=== PATIENT | female | born 2000 ===

== ENCOUNTER 2024-12-01 13:05 | Outpatient (CLI) | payer OTHER | END 2024-12-01 13:08 | disposition home or self-care (01) | LOC: PRENATAL 13:05 | PROVIDERS: ATTEND Obstetrics & Gynecology Maternal & Fetal Medicine | DX: O35.00X0 Maternal care for (suspected) central nervous system malformation or damage in fetus, unspecified, not applicable or unspecified (principal); O44.00 Complete placenta previa NOS or without hemorrhage, unspecified trimester; Z3A.25 25 weeks gestation of pregnancy ==

== ENCOUNTER 2025-03-09 15:15 | Inpatient (IN) | payer OTHER ==
[~2025-03-09] VITALS: Ht 152.4 cm; Wt 3.6 kg
[2025-03-21] MEDS ORDERED: PRENATA CHEWAB1 EACH PO (10:09)
[2025-03-21 11:09] LABS: HEMOGLOBIN 11.4 g/dL (11.2-15.7); RED BLOOD COUNT 4.39 M/uL (3.93-5.22)
[2025-03-21 11:10] LABS: BASO % 0.3 % (0.1-1.2); EOS # 0.31 (0.04-0.54); EOS % 2.7 % (0.7-7.0); LYMPH # 2.27 (1.18-3.74); LYMPH % 19.7 % (19.3-53.1); MONO # 1.12 (0.24-0.82); MONO % 9.7 % (4.7-12.5); NEUT # 7.71 (1.56-6.13); NEUT % 66.7 % (34.0-71.1); PLATELET COUNT 146 K/uL (163-369); RED CELL DISTRIBUTION WIDTH 15.2 % (11.6-14.4)
[2025-03-21 11:13] LABS: INR 0.99; PARTIAL THROMBOPLASTIN TIME 29.7 SECONDS (22.0-34.0); PROTHROMBIN TIME 10.8 SECONDS (9.0-11.5)
[2025-03-21 11:38] LABS: PH,URINE 6.5 (5.0-8.0); URINE APPEARANCE Clear; URINE BILIRRUBIN Negative (NEGATIVE); URINE BLOOD Large; URINE COLOR Yellow; URINE GLUCOSE Negative (NEGATIVE); URINE KETONE Negative (NEGATIVE); URINE LEUKOCYTE Small; URINE NITRATE Negative; URINE PROTEIN Negative (NEGATIVE); URINE UROBILINOGEN 0.2 E.U./dl
[2025-03-21 11:43] LABS: URINE BACTERIA 1370.7 uL (0.0-1933); URINE EPITHELIAL CELLS 63.3 uL (0.0-38.8); URINE RBC 2.7 uL (0.0-20.8); URINE WBC 49.6 uL (0.0-23.2)
[2025-03-21 11:59] LABS: ALBUMIN 2.7 gm/dL (3.4-5.0); BILIRUBIN TOTAL 0.25 mg/dL (0.3-1.2); CALCIUM 9.2 mg/dL (8.5-10.1); CREATININE SERUM 0.51 mg/dL (0.55-1.02); GFR 146.93; GLOBULINA 3.8 G/DL (2.4-3.5); POTASSIUM 4.3 mEq/L (3.5-5.1); TOTAL PROTEIN 6.5 gm/dL (6.4-8.2)
[2025-03-21 12:02] LABS: URINE CAST 0.14 uL (0.0-1.40)
[2025-03-23 15:39] VITALS: BP 125/77
[2025-03-23] MEDS ORDERED: RINGERS SOLUTION,LACTATED 1,000 ML IV SCH (16:30)
[2025-03-23] MEDS ORDERED: CEFAZOLIN SODIUM 1,000 MG VIAL IV SCH (17:00)
[2025-03-23 17:18] LABS: BASO % 0.2 % (0.1-1.2); EOS # 0.19 (0.04-0.54); EOS % 1.5 % (0.7-7.0); HEMATOCRIT 35.8 % (34.1-44.9); HEMOGLOBIN 11.5 g/dL (11.2-15.7); LYMPH # 1.56 (1.18-3.74); LYMPH % 12.5 % (19.3-53.1); MEAN CORPUSCULAR HEMOGLOBIN 25.5 pg (25.6-32.2); MONO # 0.82 (0.24-0.82); MONO % 6.6 % (4.7-12.5); NEUT # 9.85 (1.56-6.13); NEUT % 78.7 % (34.0-71.1); PLATELET COUNT 150 K/uL (163-369); RED BLOOD COUNT 4.51 M/uL (3.93-5.22); RED CELL DISTRIBUTION WIDTH 15.4 % (11.6-14.4); URINE APPEARANCE Cloudy; URINE BILIRRUBIN Negative (NEGATIVE); URINE BLOOD Negative; URINE COLOR Yellow; URINE GLUCOSE Negative (NEGATIVE); URINE KETONE Negative (NEGATIVE); URINE LEUKOCYTE Large; URINE NITRATE Negative; URINE PROTEIN Trace (NEGATIVE)
[2025-03-23 17:21] LABS: URINE BACTERIA 5866.3 uL (0.0-1933); URINE EPITHELIAL CELLS 76.7 uL (0.0-38.8); URINE RBC 8.3 uL (0.0-20.8); URINE WBC 304.4 uL (0.0-23.2)
[2025-03-23 17:35] LABS: URINE CAST 0.29 uL (0.0-1.40)
[2025-03-23 17:36] LABS: URINE MUCUS SCANT; URINE YEAST MODERATE /hpf
[2025-03-23 18:01] LABS: INR 0.99; PARTIAL THROMBOPLASTIN TIME 30.1 SECONDS (22.0-34.0); PROTHROMBIN TIME 10.8 SECONDS (9.0-11.5)
[2025-03-23 18:16] LABS: ALBUMIN 2.7 gm/dL (3.4-5.0); BILIRUBIN TOTAL 0.34 mg/dL (0.3-1.2); CREATININE SERUM 0.62 mg/dL (0.55-1.02); GFR 117.28; POTASSIUM 4.19 mEq/L (3.5-5.1); TOTAL PROTEIN 6.7 gm/dL (6.4-8.2)
[2025-03-23 20:00] VITALS: BP 125/77
[2025-03-23 23:35] VITALS: BP 125/74; O2SAT 0
[2025-03-24 03:20] VITALS: BP 124/72
[2025-03-24] MEDS ORDERED: CEFAZOLIN SODIUM 1,000 MG VIAL ONE (07:04)
[2025-03-24] MEDS ORDERED: OXYTOCIN 10 UNITS/ML VIAL ONE (07:12)
[2025-03-24] MEDS ORDERED: ERYTHROMYCIN BASE OPHT 1GM EACH TUBE OP ONE ×2 (07:12→15:45)
[2025-03-24 07:21] VITALS: BP 117/72; O2SAT 99
[2025-03-24] MEDS ORDERED: MORPHINE SULFATE 4 MG/ML CARTRIDGE IV PRN (09:15)
[2025-03-24 12:32] VITALS: BP 125/78; O2SAT 99
[2025-03-24] MEDS ORDERED: CEFAZOLIN SODIUM 1,000 MG VIAL IV SCH (14:00)
[2025-03-24] MEDS ORDERED: OXYTOCIN 20 UNITS/1000ML RL PIGGYBAG IV ONE (15:45)
[2025-03-24 16:00] VITALS: BP 122/71
[2025-03-25 00:13] VITALS: BP 120/77
[2025-03-25 01:37] LABS: BASO % 0.2 % (0.1-1.2); EOS % 1.3 % (0.7-7.0); PLATELET COUNT 136 K/uL (163-369)
[2025-03-25 01:44] LABS: EOS # 0.16 (0.04-0.54); HEMATOCRIT 32.5 % (34.1-44.9); HEMOGLOBIN 10.6 g/dL (11.2-15.7); LYMPH # 1.92 (1.18-3.74); LYMPH % 15.5 % (19.3-53.1); MEAN CORPUSCULAR HEMOGLOBIN 26.6 pg (25.6-32.2); MONO # 1.05 (0.24-0.82); MONO % 8.5 % (4.7-12.5); NEUT # 9.15 (1.56-6.13); RED BLOOD COUNT 3.99 M/uL (3.93-5.22); RED CELL DISTRIBUTION WIDTH 15.6 % (11.6-14.4)
[2025-03-25 04:30] VITALS: BP 124/74
[2025-03-25] MEDS ORDERED: ACETAMINOPHEN 500 MG GEL..CAP PO PRN (07:45)
[2025-03-25] MEDS ORDERED: IBUprofen 800 MG TABLET PO PRN (07:45)
[2025-03-25 08:00] VITALS: BP 130/80
[2025-03-25] MEDS ORDERED: DIPHENHYDRAMINE HCL 25 MG CAPSULE PO STA (08:20)
[2025-03-25 15:51] VITALS: BP 118/66
[2025-03-26] VITALS: BP 121/67
[2025-03-26 08:00] VITALS: BP 122/75
[2025-03-26] MEDS ORDERED: IBUPROFEN800 MG PO (08:57)
== END 2025-03-26 12:20 | disposition home or self-care (01) | DRG 788 ==
LOC: OB/GYN 03-17 15:15 → LDR 03-23 16:06 → O/R 03-24 08:52 → OB/GYN 03-24 11:54
PROVIDERS: ADMIT Specialist; ATTEND Specialist
PROC: 10D00Z1 Extraction of Products of Conception, Low, Open Approach (ICD-10-PCS; principal; 2025-03-23)
PROC: 4A1HXCZ Monitoring of Products of Conception, Cardiac Rate, External Approach (ICD-10-PCS; 2025-03-23)
DX: O33.8 Maternal care for disproportion of other origin (principal); O48.0 Post-term pregnancy; Z3A.41 41 weeks gestation of pregnancy; Z37.0 Single live birth